=== PATIENT | male | born 1995 | race Caucasian/White ===

== ENCOUNTER 2023-02-26 11:09 | Emergency (ER) | payer OTHER ==
[~2023-02-26] VITALS: Ht 185.4 cm; Wt 123.6 kg
[2023-02-26 11:11] VITALS: BP 141/88
[2023-02-26] MEDS ORDERED: LIDOCAINE VISCOUS 2% SOLN 15ML UDC SS ONE (12:25)
[2023-02-26] MEDS ORDERED: KETOROLAC 60MG 2ML VIAL IM ONE (12:25)
[2023-02-26] MEDS ORDERED: PSEU120T19 PO (12:28)
[2023-02-26] MEDS ORDERED: LIDO15SO PO (12:28)
== END 2023-02-26 12:43 | disposition home or self-care (01) ==
LOC: M ED 11:09
DX: H65.02 Acute serous otitis media, left ear (principal); R09.81 Nasal congestion; J02.9 Acute pharyngitis, unspecified
CPT/HCPCS: 96372; 99283; J1885